=== PATIENT | female | born 1990 | race Caucasian/White ===

== ENCOUNTER 2018-10-04 09:39 | Emergency (ER) | payer MEDICAID, OTHER ==
[~2018-10-04] VITALS: Ht 152.4 cm; Wt 68.0 kg
[~2018-10-04 09:39] MED LIST: PREN-88 PO
[2018-10-04 11:19] VITALS: BP 112/76
== END 2018-10-04 11:20 | disposition home or self-care (01) ==
LOC: ER 09:39
DX: H66.92 Otitis media, unspecified, left ear (principal); B34.9 Viral infection, unspecified; Z79.899 Other long term (current) drug therapy
CPT/HCPCS: 99283